=== PATIENT | female | born 2000 | race Caucasian/White ===

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

== ENCOUNTER 2018-01-22 10:44 | Emergency (ER) ==
[2018-01-22 11:03] VITALS: BP 141/87; TEMP 99.2; BMI 47.3
--- NOTE | 2018-01-22 11:14 | ED.PDOC ---
General ED Provider: Dr. SLOAN THOMPSON MD Chief Complaint: Behavioral Complaint Stated Complaint: im stressseexd out lately Time Seen by Physician: 11:10 Mode of Arrival: Walk-In Information Source: Patient Exam Limitations: No limitations Primary Care Provider: RHONA SORIANO Referred to ED by: Other Nursing and Triage Documentation Reviewed and Agree: Yes Reviewed sepsis parameters & appropriate labs ordered?: Yes System Inflammatory Response Syndrome: Not Applicable Sepsis Protocol: For patient's 13 years and over: Temp is 96.8 and below OR 101 and greater Pulse >90 BPM Resp >20/minute Acutely Altered Mental Status Are patient's symptoms suggestive of a new infection, such as: -Pneumonia -Skin, Soft Tissue -Endocarditis -UTI -Bone, Joint Infection -Implantable Device -Acute Abdominal Infection -Wound Infection -Meningitis -Blood Stream Catheter Infection -Unknown Psychological Complaint Exam - Psychiatric Complaint/Exam Patient Complains Of: Present: Other (SIB as a stress reliever) Symptoms Are: Still present Review of Systems - Review Of Systems Constitutional: Reports: No symptoms Eyes: Reports: No symptoms Ears, Nose, Mouth, Throat: Reports: No symptoms Respiratory: Reports: No symptoms Cardiac: Reports: No symptoms GI: Reports: No symptoms : Reports: No symptoms Musculoskeletal: Reports: No symptoms Skin: Reports: No symptoms Neurological: Reports: No symptoms Endocrine: Reports: No symptoms Hematologic/Lymphatic: Reports: No symptoms All Other Systems: Reviewed and Negative Past Medical History - Past Medical History Endocrine: Reports: None Cardiovascular: Reports: None Respiratory: Reports: None Hematological: Reports: Anemia Gastrointestinal: Reports: None Genitourinary: Reports: None Neuro/Psych: Reports: Migraine, Anxiety, Depression, Bipolar Disorder, Other ( SUICIDE IDEATION, PARANOIA,SCHIZOPHRENIA, BORDERLINE PERSONALITY DISORDER) Musculoskeletal: Reports: None Cancer: Reports: None Last Menstrual Period: 01/06-02/19 Other Pertinent Past Medical History: Morbid obesity - Surgical History General Surgical History: Reports: None, Tonsillectomy, Orthopedic (LEFT FOOT SURG, LEFT ELBOW SURG) - Family History Family History: Reports: None - Social History Smoking Status: Former smoker Hx Substance Use: Yes (cannibis) Alcohol Screening: None Physical Exam - Physical Exam Appearance: Well-appearing, No pain distress, Well-nourished Eyes: KAITY, EOMI, Conjunctiva clear ENT: Ears normal, Nose normal, Oropharynx normal Respiratory: Airway patent, Breath sounds clear, Breath sounds equal, Respirations nonlabored Cardiovascular: RRR, Pulses normal, No rub, No murmur GI/: Soft, Nontender, No masses, Bowel sounds normal, No Organomegaly Musculoskeletal: Normal strength, ROM intact, No edema, No calf tenderness Skin: Warm (several amall superficial cuts to forearms), Dry, Normal color Neurological: Sensation intact, Motor intact, Reflexes intact, Cranial nerves intact, Alert, Oriented Psychiatric: Affect appropriate, Mood appropriate Critical Care Note - Critical Care Note Total Time (mins): 0 Course - Course Hematology/Chemistry: 01/22/18 12:35 01/22/18 13:00 Orders, Labs, Meds: Lab Review 01/22/18 01/22/18 01/22/18 12:35 12:35 12:35 WBC 8.76 RBC 5.10 Hgb 12.7 Hct 39.9 MCV 78.2 L MCH 24.9 L MCHC 31.8 RDW Coeff of H[place] 14.3 Plt Count 285 Immature Gran % (Auto) 0.2 Neut % (Auto) 72.8 Lymph % (Auto) 20.5 [place] % (Auto) 5.4 Eos % (Auto) 0.9 Baso % (Auto) 0.2 Immature Gran # (Auto) 0.0 Neut # (Auto) 6.4 Lymph # (Auto) 1.8 [place] # (Auto) 0.5 Eos # (Auto) 0.1 Baso # (Auto) 0.0 Sodium Potassium Chloride Carbon Dioxide Anion Gap BUN Creatinine Estimated GFR (MDRD) BUN/Creatinine Ratio Glucose Calcium Total Bilirubin AST ALT Alkaline Phosphatase Total Protein Albumin Globulin Albumin/Globulin Ratio TSH Urine Color Yellow Urine Clarity Cloudy Urine pH 7.0 Ur Specific [place] 1.025 Urine Protein Negative Urine Glucose (UA) Negative Urine Ketones Negative Urine Blood Negative Urine Nitrite Negative Urine Bilirubin Negative Urine Urobilinogen 1.0 Ur Leukocyte Esterase Negative Ur Squamous Epith Cells Tntc Salicylate Level mg/dL Urine Opiates Screen Negative Ur Oxycodone Screen Negative Urine Methadone Screen Negative Ur Propoxyphene Screen Negative Acetaminophen Ur Barbiturates Screen Negative U Tricyclic Antidepress Negative Ur Phencyclidine Scrn Negative Ur Amphetamine Screen Negative U Methamphetamines Scrn Negative U Benzodiazepines Scrn Negative Urine Cocaine Screen Negative U Cannabinoids Screen Positive 01/22/18 01/22/18 13:00 13:00 WBC RBC Hgb Hct MCV MCH MCHC RDW Coeff of Shea Plt Count Immature Gran % (Auto) Neut % (Auto) Lymph % (Auto) [place] % (Auto) Eos % (Auto) Baso % (Auto) Immature Gran # (Auto) Neut # (Auto) Lymph # (Auto) [place] # (Auto) Eos # (Auto) Baso # (Auto) Sodium 140 Potassium 3.6 Chloride 106 Carbon Dioxide 23 Anion Gap 14.6 BUN 6 L Creatinine 0.67 Estimated GFR (MDRD) 113.00 BUN/Creatinine Ratio 8.95 Glucose 106 Calcium 9.5 Total Bilirubin 0.4 L AST 16 ALT 18 Alkaline Phosphatase 61 Total Protein 7.8 Albumin 3.9 Globulin 3.9 Albumin/Globulin Ratio 1.00 TSH 2.313 Urine Color Urine Clarity Urine pH Ur Specific [place] Urine Protein Urine Glucose (UA) Urine Ketones Urine Blood Urine Nitrite Urine Bilirubin Urine Urobilinogen Ur Leukocyte Esterase Ur Squamous Epith Cells Salicylate Level mg/dL < 5.0 Urine Opiates Screen Ur Oxycodone Screen Urine Methadone Screen Ur Propoxyphene Screen Acetaminophen < 3 L Ur Barbiturates Screen U Tricyclic Antidepress Ur Phencyclidine Scrn Ur Amphetamine Screen U Methamphetamines Scrn U Benzodiazepines Scrn Urine Cocaine Screen U Cannabinoids Screen Orders Category Date Time Status EKG-(ED ONLY) Stat CARDIO 01/22/18 12:44 Completed ACETAMINOPHEN Stat LAB 01/22/18 13:00 Completed ASPIRIN LEVEL [SALICYLATE] Stat LAB 01/22/18 13:00 Completed CBC W/ AUTO DIFF Stat LAB 01/22/18 12:35 Completed CMP [COMPREHENSIVE METABOLIC PANEL] Stat LAB 01/22/18 13:00 Completed THYROID STIMULATING HORMONE Stat LAB 01/22/18 13:00 Completed UA [URINALYSIS C & S IF INDICATED] Stat LAB 01/22/18 12:35 Completed URINE DRUG SCREEN (RAPID FOR ED) [DRUG SCREEN, URINE, LAB 01/22/18 12:35 Completed RAPID] Stat Vital Signs: Temp Pulse Resp BP Pulse Ox 01/22/18 10:44 99.2 F 95 H 20 141/87 H 97 Departure - Departure Time of Disposition: 13:56 Disposition: TSF TO PSYCH HOSP/UNIT Discharge Problem: Self-injurious behavior Condition: Good Pt referred to PMD for follow-up: No (admitted to Psych) IPMP verified?: No Allergies/Adverse Reactions: Allergies cephalexin [From Keflex] Adverse Reaction (Verified 01/22/18 11:00) Sulfa (Sulfonamide Antibiotics) Adverse Reaction (Verified 01/22/18 11:00) Hives EGGS Adverse Reaction (Uncoded 07/11/17 17:05) Home Medications: Ambulatory Orders 1 [No Reported Medications] 10/09/17 Transfer Form Completed: Yes Disposition Discussed With: Patient (all pre admission labs wnl except uds positive for marijuana)
== END 2018-01-22 17:46 ==
LOC: ED 10:44
DX: S51.812A Laceration without foreign body of left forearm, initial encounter (principal); S51.811A Laceration without foreign body of right forearm, initial encounter; R46.89 Other symptoms and signs involving appearance and behavior; X78.9XXA Intentional self-harm by unspecified sharp object, initial encounter
CPT/HCPCS: 36415; 80053; 80306; 80307; 81001; 84443; 85025; 93005; 93010; 99285

== ENCOUNTER 2018-12-17 16:49 | Emergency (ER) ==
[2018-12-17 16:55] VITALS: TEMP 99; BMI 47.8
--- NOTE | 2018-12-17 17:14 | ED.PDOC ---
General ED Provider: Dr. STAN MARTINS Chief Complaint: Stated Complaint: 18 y old cau.female unsure about the actual age of her gestation.Reporting the LMP in september to me and nurse.Notified that ultrasound is not available. here now. Time Seen by Physician: 16:55 Mode of Arrival: Walk-In Information Source: Patient Exam Limitations: No limitations Primary Care Provider: RHONA SORIANO Nursing and Triage Documentation Reviewed and Agree: Yes Does patient meet sepsis criteria?: No System Inflammatory Response Syndrome: Not Applicable Sepsis Protocol: For patient's 13 years and over: Temp is 96.8 and below OR 101 and greater Pulse >90 BPM Resp >20/minute Acutely Altered Mental Status Are patient's symptoms suggestive of a new infection, such as: -Pneumonia -Skin, Soft Tissue -Endocarditis -UTI -Bone, Joint Infection -Implantable Device -Acute Abdominal Infection -Wound Infection -Meningitis -Blood Stream Catheter Infection -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 Complaint/Exam Onset/Duration: brownish discharge Symptoms Are: Still present Timing: Intermittent Initial Severity: None Current Severity: None # of Pads Per Hour: 0 Character: Reports: Brownish Aggravating: Reports: None Alleviating: Reports: Rest Review of Systems - Review Of Systems Constitutional: Reports: No symptoms Eyes: Reports: No symptoms Ears, Nose, Mouth, Throat: Reports: No symptoms Respiratory: Reports: No symptoms Cardiac: Reports: No symptoms GI: Reports: No symptoms : Reports: No symptoms Musculoskeletal: Reports: No symptoms Neurological: Reports: No symptoms Endocrine: Reports: No symptoms Hematologic/Lymphatic: Reports: No symptoms All Other Systems: Reviewed and Negative Past Medical History - Past Medical History Endocrine: Reports: None Cardiovascular: Reports: None Respiratory: Reports: None Hematological: Reports: Anemia Gastrointestinal: Reports: None Genitourinary: Reports: None Neuro/Psych: Reports: Migraine, Anxiety, Depression, Bipolar Disorder, Other ( SUICIDE IDEATION, PARANOIA,SCHIZOPHRENIA, BORDERLINE PERSONALITY DISORDER) Musculoskeletal: Reports: None Cancer: Reports: None Last Menstrual Period: september 2018 Other Pertinent Past Medical History: Morbid obesity - Surgical History General Surgical History: Reports: None, Tonsillectomy, Orthopedic (LEFT FOOT SURG, LEFT ELBOW SURG) - Family History Family History: Reports: None - Social History Smoking Status: Former smoker Hx Substance Use: Yes (melanyibjavid) Alcohol Screening: None Physical Exam - Physical Exam Appearance: Well-appearing Ill-appearing: None Pain Distress: None Eyes: KAITY ENT: Ears normal, Nose normal, Oropharynx normal Neck: Supple Respiratory: Airway patent, Breath sounds clear Cardiovascular: RRR, Pulses normal, No rub GI/: Nontender Musculoskeletal: Normal strength Skin: Warm, Dry Neurological: Sensation intact, Alert, Oriented Psychiatric: Affect appropriate Re-Evaluation - Re-Evaluation Time of Re-Evaluation: 18:13 (QUANT.HCG 36249 ) Vital Signs Stable: Yes (Test and need for UIS explained o the Pt OBMay - hAS APPT.) Pain Level: bp REPEATED with wide cuff to match Pts arm 133/75.Has OB visiot 31 M Appearance: NAD Lungs: Clear Skin: Warm and Dry Neuro: Alert and Oriented X3 CV: RRR Critical Care Note - Critical Care Note Total Time (mins): 0 Course - Course Orders, Labs, Meds: Lab Review 12/17/18 17:30 HCG, Quant 62071.000 Orders Category Date Time Status HCG,QUANTITATIVE Stat LAB 12/17/18 17:23 Ordered Vital Signs: Temp Pulse Resp BP Pulse Ox 12/17/18 18:22 132/75 12/17/18 16:50 99.0 F 88 2 L 175/93 H 98 Departure - Departure Time of Disposition: 18:25 Disposition: HOME SELF-CARE Discharge Problem: Instructions: Vitamins (By mouth) Condition: Good Pt referred to PMD for follow-up: Yes (pt states she has an OB appointment on Dec 23 2018) IPMP verified?: No Additional Instructions: Quantitative HCG results given to PT to bring to the OB appontment in 6 days Allergies/Adverse Reactions: Allergies cephalexin [From Keflex] Adverse Reaction (Verified 12/17/18 16:55) Sulfa (Sulfonamide Antibiotics) Adverse Reaction (Verified 12/17/18 16:55) Hives EGGS Adverse Reaction (Uncoded 07/11/17 17:05) Home Medications: Ambulatory Orders 1 [No Reported Medications] 10/09/17 Disposition Discussed With: Patient, Family
[2018-12-17 18:23] VITALS: BP 132/75
== END 2018-12-17 18:35 | disposition home or self-care (01) ==
LOC: ED 16:49
DX: Z34.90 Encounter for supervision of normal pregnancy, unspecified, unspecified trimester (principal)
CPT/HCPCS: 36415; 84702; 99283

== ENCOUNTER 2018-12-22 20:00 | Outpatient (CLI) | END 2018-12-22 20:16 | disposition short-term general hospital (02) | LOC: AMBL 20:00 | PROVIDERS: ATTEND Family Medicine | DX: O46.91 Antepartum hemorrhage, unspecified, first trimester (principal); R10.9 Unspecified abdominal pain ==

== ENCOUNTER 2019-01-22 16:08 | Outpatient (CLI) | END 2019-01-22 16:25 | disposition short-term general hospital (02) | LOC: AMBL 16:08 | PROVIDERS: ATTEND Emergency Medicine | DX: S61.511A Laceration without foreign body of right wrist, initial encounter (principal); X78.8XXA Intentional self-harm by other sharp object, initial encounter; R45.851 Suicidal ideations; F32.9 Major depressive disorder, single episode, unspecified ==